=== PATIENT | male | born 1955 | race Caucasian/White ===

== ENCOUNTER 2017-06-15 23:56 | Inpatient (IN) ==
[2017-06-16] MEDS ORDERED: LASIX IV ONE (00:38)
[2017-06-16] MEDS ORDERED: ASPIRIN PO STA (00:39)
[2017-06-16 00:50] LABS: MANUAL DIFF NEEDED? NO
--- NOTE | 2017-06-16 01:05 | EKG Report ---
Test Performed on : 06/16/2017 00:58:13 AM Test Reason : CHEST PAIN Blood Pressure : / mmHG Vent. Rate : 109 BPM Atrial Rate : 109 BPM P-R Int : 164 ms QRS Dur : 110 ms QT Int : 378 ms P-R-T Axes : 074 025 034 degrees QTc Int : 509 ms Sinus tachycardia. with frequent premature ventricular complexes. Possible Left atrial enlargement Cannot rule out Inferior infarct , age undetermined Abnormal ECG When compared with ECG of 06-JAN-2012 05:00, premature ventricular complexes. are now present Questionable change in QRS duration Unconfirmed Result
[2017-06-16 01:14] LABS: INR 1.26 (0.86-1.15); PROTIME 16.8 Seconds (12.1-15.5)
[2017-06-16 01:15] LABS: PTT PL 34.7 Seconds (22.6-43.9)
[2017-06-16 01:28] LABS: ALBUMIN 3.1 g/dL (3.5-5.0); CALCIUM 8.6 mg/dL (8.8-10.2); MAGNESIUM 1.8 mg/dL (1.5-2.7); POTASSIUM 3.2 mmol/L (3.5-5.1); TOTAL BILIRUBIN 1.1 mg/dL (0.20-1.00); TOTAL PROTEIN 5.7 g/dL (6.3-8.3)
[2017-06-16 01:36] LABS: BASO% 0.9 % (0.0-0.8); EOS# 0.07 X1000 (0.0-0.7); EOS% 1.3 % (0.0-10.0); HEMATOCRIT 42.7 % (42.0-52.0); HEMOGLOBIN 13.7 g/dL (14.0-18.0); IMM GRAN# 0.01 X1000 (0.0-0.04); IMM GRAN% 0.2 % (0.0-0.5); LYMPH# 0.73 X1000 (1.2-3.4); LYMPH% 13.2 % (20.5-51.1); MCH 25.5 PG (27-31); MCHC 32.1 g/dL (33-37); MCV 79.4 FL (81-99); MONO# 0.49 X1000 (0.11-0.59); MONO% 8.8 % (1.7-9.3); MPV 11.8 FL (7.4-10.4); NEUT% 75.6 % (42.2-75.2); PLT 185 X1000 (130-400); RBC 5.38 XMIL (4.7-6.1)
[2017-06-16 01:52] LABS: CK INDEX 1.5 (0.0-2.5); CK-MB 6.13 ng/mL (0.0-5.0)
[2017-06-16] MEDS ORDERED: COREG PO ONE (02:02)
[2017-06-16] MEDS ORDERED: COREG ONE (02:29)
[2017-06-16] MEDS: NITROGLYCERIN TOP SCH ×2 (02:40→08:57)
--- NOTE | 2017-06-16 07:43 | Diag Imaging Result Doc PS360 ---
EXAM: CHEST-2 VIEWS INDICATION: CP TECHNIQUE: 2 views COMPARISON: 11/06/2011 FINDINGS: There are mildly increased central vascular markings suggesting possible pulmonary venous congestion. The lungs are grossly clear, otherwise. There is no discrete pleural fluid collection or pneumothorax. There is cardiomegaly. IMPRESSION: Cardiomegaly and suggestion of mild pulmonary venous congestion. Electronically signed by Francesco Arzate 06/16/2017 7:41 AM
[2017-06-16] MEDS: REQUIP PO SCH ×2 (12:23→21:22)
[2017-06-16] MEDS: NORVASC PO SCH (12:24)
[2017-06-16] MEDS: LASIX IV SCH ×2 (12:24→23:59)
[2017-06-16 14:21] LABS: CK INDEX 1.9 (0.0-2.5); CK-MB 7.5 ng/mL (0.0-5.0)
--- NOTE | 2017-06-16 16:26 | Diag Imaging Result Doc PS360 ---
EXAM: LUNG SCAN / VQ INDICATION: elevated ddimer TECHNIQUE: 41.2 mCi of aerosolized technetium 99 DTPA was administered for the ventilation portion of the scan. 5.9 mCi of technetium 99 MAA was administered for the perfusion portion of the scan. COMPARISON: Chest radiograph dated 06/16/2017. No prior V/Q scan is available for comparison. FINDINGS: There is a questionable small perfusion defect seen at the peripheral lung base only on the LPO projection. However, it is completely matched on the ventilation portion of the scan. No corresponding abnormality is identified on the chest radiograph. No other perfusion defects are appreciated. IMPRESSION: Questionable matched perfusion defect at the left lung base only on the LPO projection indicating an intermediate probability of pulmonary embolism. Electronically signed by Francesco Arzate 06/16/2017 4:24 PM
[2017-06-16] MEDS: KLOR-CON PO SCH ×2 (16:28→21:22)
[2017-06-16] MEDS: LOVENOX SUBQ SCH (21:22)
[2017-06-17 06:08] LABS: MANUAL DIFF NEEDED? NO
[2017-06-17 06:24] LABS: BASO% 2.1 % (0.0-0.8); EOS# 0.07 X1000 (0.0-0.7); EOS% 1.5 % (0.0-10.0); HEMATOCRIT 51.7 % (42.0-52.0); HEMOGLOBIN 16.3 g/dL (14.0-18.0); IMM GRAN# 0.01 X1000 (0.0-0.04); IMM GRAN% 0.2 % (0.0-0.5); LYMPH# 0.99 X1000 (1.2-3.4); LYMPH% 21.2 % (20.5-51.1); MCH 24.7 PG (27-31); MCHC 31.5 g/dL (33-37); MCV 78.5 FL (81-99); MONO# 0.43 X1000 (0.11-0.59); MONO% 9.2 % (1.7-9.3); MPV 11.6 FL (7.4-10.4); NEUT% 65.8 % (42.2-75.2); PLT 227 X1000 (130-400); RBC 6.59 XMIL (4.7-6.1)
[2017-06-17 06:43] LABS: POTASSIUM 4.1 mmol/L (3.5-5.1)
--- NOTE | 2017-06-17 07:32 | Diag Imaging Result Doc PS360 ---
EXAM: CHEST-2 VIEWS - 06/17/2017 HISTORY: chf TECHNIQUE: Chest two views COMPARISON: 06/16/2017 FINDINGS: There is stable cardiomegaly. There is been interval decrease in basilar edema and small right pleural effusion. Interval decrease in central vascular congestion. IMPRESSION: Interval improvement in mild congestive heart failure. Electronically signed by Carmelo Brewster 06/17/2017 7:30 AM
[2017-06-17] MEDS: NORVASC PO SCH (08:58)
[2017-06-17] MEDS: KLOR-CON PO SCH ×2 (08:58→20:40)
[2017-06-17] MEDS: REQUIP PO SCH ×2 (08:58→20:41)
[2017-06-17] MEDS: LOVENOX SUBQ SCH ×2 (08:58→20:41)
[2017-06-17] MEDS: LASIX IV SCH (11:58)
--- NOTE | 2017-06-17 12:12 | ECHO REPORT ---
ORDER DATE: 06/16/2017 INDICATION: Congestive heart failure. FINDINGS: 1. The right atrium is moderately to severely enlarged. 2. There is moderate and possibly severe tricuspid regurgitation. It is a somewhat eccentric jet. RV systolic pressure of 46. 3. The right ventricle is moderately enlarged with moderate reduction in RV systolic function. 4. Mild pulmonic insufficiency. 5. Moderate left atrial enlargement at 5.6 cm. 6. No mitral prolapse. There is at least moderate and possibly severe mitral regurgitation. This is an eccentric jet. There is apical tenting of the mitral leaflets. 7. The left ventricle was dilated with an end-diastolic dimension of 6.4. Normal wall thicknesses with a posterior and interventricular septal wall thickness of 1.1 cm each. Severe LV systolic function reduction with an estimated EF of 15% and severe global hypokinesis. 8. Aortic valve opens well. No evidence of stenosis or insufficiency. 9. Aorta appears normal in visualized segments. 10. No pericardial effusion. 11. 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 cc: MD Suzette Mahajan CRNP
[2017-06-17] MEDS: DOBUTAMINE 500/D5W 500 MG/250 ML IV.SOLN IV SCH (17:40)
[2017-06-18] MEDS: LASIX IV SCH ×2 (00:17→11:52)
[2017-06-18 06:23] LABS: HEMATOCRIT 43.3 % (42.0-52.0); HEMOGLOBIN 13.8 g/dL (14.0-18.0); MCH 25.2 PG (27-31); MCHC 31.9 g/dL (33-37); MCV 79.2 FL (81-99); RBC 5.47 XMIL (4.7-6.1)
[2017-06-18 06:30] LABS: AGAP 15; ALKALINE PHOSPHATASE 60 U/L (32-122); BUN 52 mg/dL (8-22); CALCIUM 8.3 mg/dL (8.8-10.2); CHLORIDE 104 mmol/L (98-107); COSMO 294; GOT 22 U/L (10-34); GPT 25 U/L (10-44); HDL 26 mg/dL (35-55); LDL 73 mg/dL; POTASSIUM 3.9 mmol/L (3.5-5.1); SODIUM 141 mmol/L (136-145); TCO2 22 mmol/L (25-35); TOTAL PROTEIN 5.3 g/dL (6.3-8.3); TRIGLYCERIDES 90 mg/dL (39-160); VLDL 18 mg/dL
[2017-06-18] MEDS: KLOR-CON PO SCH ×2 (08:29→20:23)
[2017-06-18] MEDS: LOVENOX SUBQ SCH ×2 (08:29→20:22)
[2017-06-18] MEDS: REQUIP PO SCH ×2 (08:29→20:22)
[2017-06-18] MEDS ORDERED: APRESOLINE PO SCH (09:00)
[2017-06-18] MEDS ORDERED: ALBUMIN 25% IV ONE (09:31)
[2017-06-18 13:05] LABS: UR CREAT RANDOM 97.4 mg/dL (14-26)
[2017-06-18] MEDS: APRESOLINE PO SCH ×2 (13:51→21:29)
--- NOTE | 2017-06-18 14:26 | Diag Imaging Result Doc PS360 ---
US RENAL 2 (RETROPER) COMPLETE - 06/18/2017 INDICATION: decreased renal function TECHNIQUE: COMPARISON: None FINDINGS: There is trace ascites. The kidneys and urinary bladder are normal. No mass or hydronephrosis. The right kidney measures 11.7 x 6.5 x 5.5 cm. The left kidney measures 12.2 x 4.1 x 4.7 cm. Cortex measures about 1.1 cm bilaterally. IMPRESSION: Trace ascites. Unremarkable exam of the urinary tract. Electronically signed by Kiran Crawford 06/18/2017 2:24 PM
[2017-06-18] MEDS: DOBUTAMINE 500/D5W 500 MG/250 ML IV.SOLN IV SCH (16:35)
[2017-06-18 18:23] LABS: URINE SOURCE CLEAN CATCH
[2017-06-18 18:31] LABS: BILIRUBIN URINE NEGATIVE (NEGATIVE); BLOOD URINE NEGATIVE (NEGATIVE); CLARITY CLEAR (CLEAR); COLOR YELLOW; GLUCOSE URINE NEGATIVE (NEGATIVE); LEUKOCYTES URINE NEGATIVE (NEGATIVE); NITRITE URINE NEGATIVE (NEGATIVE); PH URINE 6.5; PROTEIN URINE TRACE mg/dL (NEGATIVE); URINE MICROSCOPIC NEEDED? YES; UROBILINOGEN URINE NORMAL
[2017-06-18 18:32] LABS: URINE EPITHELIAL CELLS <10 /HPF (<10); URINE RBC <10 /HPF (<10); URINE WBC <10 /HPF (<10)
[2017-06-19] MEDS: LASIX IV SCH ×2 (02:21→13:22)
[2017-06-19 06:25] LABS: MANUAL DIFF NEEDED? NO
[2017-06-19] MEDS: APRESOLINE PO SCH ×3 (06:36→21:34)
[2017-06-19 06:41] LABS: BASO% 0.6 % (0.0-0.8); EOS% 2.2 % (0.0-10.0); HEMATOCRIT 42.1 % (42.0-52.0); HEMOGLOBIN 13.2 g/dL (14.0-18.0); LYMPH# 0.63 X1000 (1.2-3.4); LYMPH% 13.6 % (20.5-51.1); MCH 25.2 PG (27-31); MCHC 31.4 g/dL (33-37); MCV 80.5 FL (81-99); MONO# 0.49 X1000 (0.11-0.59); MONO% 10.6 % (1.7-9.3); MPV 12.1 FL (7.4-10.4); PLT 187 X1000 (130-400); RBC 5.23 XMIL (4.7-6.1)
[2017-06-19 06:53] LABS: ALBUMIN 3.1 g/dL (3.5-5.0); CALCIUM 8.6 mg/dL (8.8-10.2)
[2017-06-19] MEDS: KLOR-CON PO SCH ×2 (08:43→21:34)
[2017-06-19] MEDS: LOVENOX SUBQ SCH (08:43)
[2017-06-19] MEDS: REQUIP PO SCH ×2 (08:43→21:34)
[2017-06-19] MEDS ORDERED: VENOFER IV ONE (11:42)
[2017-06-19] MEDS ORDERED: VENOFER 300 MG in NS 250 ML IV ONE (12:30)
[2017-06-19] MEDS: DOBUTAMINE 500/D5W 500 MG/250 ML IV.SOLN IV SCH (13:57)
[2017-06-19 14:06] LABS: UR CREATININE 69.2 mg/dL (14-26); UR CREATININE TOTAL 1487.8 mg/24 (800-1800); UR PROTEIN 15.8 mg/dL
[2017-06-19] MEDS ORDERED: TYLENOL PO PRN (21:30)
[2017-06-20] MEDS: LASIX IV SCH ×2 (02:45→14:52)
[2017-06-20] MEDS: APRESOLINE PO SCH ×3 (05:12→21:29)
[2017-06-20 06:10] LABS: MANUAL DIFF NEEDED? NO
[2017-06-20 06:15] LABS: BASO% 0.7 % (0.0-0.8); EOS# 0.09 X1000 (0.0-0.7); HEMATOCRIT 41.9 % (42.0-52.0); HEMOGLOBIN 12.9 g/dL (14.0-18.0); IMM GRAN# 0.01 X1000 (0.0-0.04); IMM GRAN% 0.2 % (0.0-0.5); LYMPH# 0.67 X1000 (1.2-3.4); LYMPH% 14.6 % (20.5-51.1); MCH 24.9 PG (27-31); MCHC 30.8 g/dL (33-37); MCV 80.9 FL (81-99); MONO# 0.57 X1000 (0.11-0.59); MONO% 12.4 % (1.7-9.3); MPV 12.1 FL (7.4-10.4); NEUT% 70.1 % (42.2-75.2); PLT 184 X1000 (130-400); RBC 5.18 XMIL (4.7-6.1)
[2017-06-20 06:42] LABS: CALCIUM 8.3 mg/dL (8.8-10.2); POTASSIUM 4.1 mmol/L (3.5-5.1)
[2017-06-20] MEDS: REQUIP PO SCH ×2 (08:44→21:29)
[2017-06-20] MEDS: KLOR-CON PO SCH ×2 (08:44→21:29)
[2017-06-20] MEDS: LOVENOX SUBQ SCH (08:44)
[2017-06-20] MEDS: COZAAR PO SCH (10:30)
[2017-06-20] MEDS: COREG PO SCH (21:30)
[2017-06-21] MEDS: LASIX IV SCH ×3 (02:24→21:40)
[2017-06-21 05:38] LABS: ALBUMIN 3.3 g/dL (3.5-5.0); CALCIUM 8.9 mg/dL (8.8-10.2); POTASSIUM 4.4 mmol/L (3.5-5.1)
[2017-06-21] MEDS: APRESOLINE PO SCH ×3 (06:00→21:42)
--- NOTE | 2017-06-21 08:08 | Diag Imaging Result Doc PS360 ---
CHEST-2 VIEWS - 06/21/2017 INDICATION: hypoxia TECHNIQUE: COMPARISON: 06/17/2017 FINDINGS: There is borderline cardiomegaly. There is improvement in the increased markings/edema in the lung bases. There is some trace pleural fluid in the fissures but no significant effusions. No new infiltrates. IMPRESSION: Improvement from prior. Electronically signed by Kiran Crawford 06/21/2017 8:06 AM
[2017-06-21] MEDS: KLOR-CON PO SCH ×2 (08:52→21:41)
[2017-06-21] MEDS: REQUIP PO SCH ×2 (08:52→21:41)
[2017-06-21] MEDS: COREG PO SCH ×2 (08:52→21:42)
[2017-06-21] MEDS: COZAAR PO SCH (08:52)
[2017-06-21] MEDS: LOVENOX SUBQ SCH (08:53)
[2017-06-22 06:06] LABS: HEMATOCRIT 44.4 % (42.0-52.0); HEMOGLOBIN 13.9 g/dL (14.0-18.0); MCH 25.2 PG (27-31); MCHC 31.3 g/dL (33-37); MCV 80.6 FL (81-99); RBC 5.51 XMIL (4.7-6.1)
[2017-06-22] MEDS: APRESOLINE PO SCH ×2 (06:23→13:44)
[2017-06-22 06:32] LABS: ALBUMIN 3.2 g/dL (3.5-5.0); CALCIUM 8.7 mg/dL (8.8-10.2); MAGNESIUM 2.2 mg/dL (1.5-2.7); POTASSIUM 4.1 mmol/L (3.5-5.1); TOTAL PROTEIN 6.1 g/dL (6.3-8.3)
[2017-06-22] MEDS: LASIX IV SCH (09:16)
[2017-06-22] MEDS: REQUIP PO SCH (09:16)
[2017-06-22] MEDS: KLOR-CON PO SCH (09:17)
[2017-06-22] MEDS: COREG PO SCH (09:17)
[2017-06-22] MEDS: COZAAR PO SCH (09:17)
[2017-06-22] MEDS: LOVENOX SUBQ SCH (09:33)
[2017-06-22 11:41] VITALS: BP 111/77
== END 2017-06-22 15:46 | disposition home or self-care (01) ==
LOC: P.ED 23:56 → SUATTDRO 06-16 03:20 → P.MEDSURG 06-16 03:20 → P.ICU 06-17 17:36 → P.MEDSURG 06-20 12:42
PROVIDERS: ATTEND Internal Medicine